=== PATIENT | female | born 1995 | race Caucasian/White ===

== ENCOUNTER 2024-10-01 13:57 | Emergency (ER) | payer SELFPAY ==
--- NOTE | 2024-10-01 14:00 | ED.GENMED ---
ED Provider Triage
<JUSTIN Menjivar - Last Filed: 10/01/24 14:03>
-
Patient seen by provider in Triage?: Seen in Triage
Attestation: A medical screening examination has been initiated by a qualified medical provider. Based on the assessment performed at this time, it has been determined that an emergent medical condition may exist and the patient has been informed
that further medical evaluation and possible additional diagnostic testing may be needed.
HPI: Patient is a 29 year female started vomiting since Saturday and yesterday noticed blood in emesis( dark ). Unable to keep oral fluids down. + liquid diarrhea c/o of upper abd burning
Patient has a history of hyperemesis cannabinoid.
LMP about a week ago.
Last used marijuana Saturday.
GENERAL: Alert , in no apparent distress
EYE: No visual abnormalities.
NECK: Trachea midline
ENT: No visible abnormalities.
LUNGS: No acute respiratory distress
NEUROLOGICAL: Alert and oriented
SKIN: Skin intact. No visible changes.
MUSCULOSKELETAL: Moving extremities normally
PSYCH: Normal and appropriate interaction.
This is a medical evaluation conducted in person to initiate diagnostic evaluation and provide initial therapeutics. Please see further documentation by the treating clinician.
History of Present Illness
<JUSTIN Menjivar - Last Filed: 10/01/24 14:03>
General
Chief Complaint: Abdominal Symptoms
Time Seen by Provider: 10/01/24 16:28
<Stephan Umanzor Jr., PA-C - Last Filed: 10/01/24 19:50>
General
Source: patient
Exam Limitations: none
Nursing documentation reviewed up to this point in time: agreed with
History of Present Illness
History of Present Illness:
29-year-old female past medical history of cannabinoid hyperemesis syndrome presenting to the emergency department today with concerns of vomiting over the past 2 days. Has had trouble tolerating anything by mouth. Also has had some loose stool.
Denies any chest pain shortness of breath seem to improve at home with hot showers.
Past History
<JUSTIN Menjivar - Last Filed: 10/01/24 14:03>
Past History
ED Past Medical History: Psychiatric (Anxiety, Bipolar, Depression) and Other (Cyclical vomiting)
ED Past Surgical History: None
Social History
Tobacco: Non-smoker
Alcohol: None
Drug: Marijuana
Personal: Single
Living: with family
Employment: Not employed
Family History
Family History: Other (Noncontributory)
Review of Systems
<Stephan Umanzor Jr., PA-C - Last Filed: 10/01/24 19:50>
Review of Systems
Allergies reviewed?: Yes
All Other Systems: ROS reviewed and negative except as documented in HPI and ROS
Phy Exam
<Stephan Umanzor Jr., PA-C - Last Filed: 10/01/24 19:50>
Physical Exam
Physical Exam:
GENERAL: Alert , in no apparent distress
EYE: pupils equal and reactive
NECK: Supple, no significant adenopathy.
ENT: o/p clr, mmm.
CARDIAC: Regular rate and rhythm .
LUNGS: Clear breath sounds bilaterally, no acute respiratory distress, no wheezes/rales/rhonchi
ABDOMEN: Soft, without focal tenderness, no r/g, no cvat
NEUROLOGICAL: Alert and oriented, no focal neuro deficits
SKIN: Warm and dry, skin intact.
MUSCULOSKELETAL: No edema, well perfused.
PSYCH: Normal and appropriate interaction.
Course
<JUSTIN Menjivar - Last Filed: 10/01/24 14:03>
Orders/Labs/Results
Orders:
Orders
10/01/24 14:03
Test Result ONCE
10/01/24 14:08
Complete Blood Count/With Diff Urgent
Comprehensive Metabolic Panel Urgent
HCG, Serum Qualitative Screen Urgent
Lipase Urgent
10/01/24 16:46
Famotidine [Pepcid] 20 mg IV NOW STA
Haloperidol Lactate [Haldol] 2 mg IV NOW STA
10/01/24 16:47
0.9% Sodium Chloride 1000 ml [Nss] 1,000 ml IV BOLUS
10/01/24 17:28
Electrocardiogram (*1) Urgent
Reason for Study: QTc Monitoring
EKG- Treatment ONCE
10/01/24 18:07
Diphenhydramine [Benadryl] 25 mg IV NOW STA
Abnormal Lab Results
10/01/24
14:08
WBC 14.8 H 10^3/uL
(4.8-10.8)
RBC 6.34 H 10^6/uL
(4.20-5.40)
Hgb 17.6 H g/dL
(12.0-16.0)
Hct 51.4 H %
(37.0-47.0)
Plt Count 515 H 10^3/uL
(130-400)
MPV 11.2 H fL
(7.4-10.4)
Absolute Neuts (auto) 12.0 H 10^3/uL
(1.4-6.5)
Neutrophils % 81.0 H %
(42.2-75.2)
Lymphocytes % 13.6 L %
(20.5-51.1)
Carbon Dioxide 18 L mmol/L
(22-30)
Glucose 125 H mg/dl
(70-99)
Calcium 10.4 H mg/dl
(8.4-10.2)
Total Protein 8.6 H g/dl
(6.3-8.2)
Albumin 5.5 H g/dl
(3.5-5.0)
10/01/24 14:08
10/01/24 14:08
Vital Signs
Initial and Last Documented VS:
Initial Vital Signs
Temp Pulse Resp BP Pulse Ox
99.0 F 110 16 146/98 99
10/01/24 15:38 10/01/24 15:38 10/01/24 15:38 10/01/24 15:38 10/01/24 15:38
Last Documented Vital Signs
Temp Pulse Resp BP Pulse Ox
99.0 F 110 16 146/98 99
10/01/24 15:38 10/01/24 15:38 10/01/24 15:38 10/01/24 15:38 10/01/24 15:38
<Stephan Umanzor Jr., PA-C - Last Filed: 10/01/24 19:50>
Orders/Labs/Results
Orders:
Orders
10/01/24 14:03
Test Result ONCE
10/01/24 14:08
Complete Blood Count/With Diff Urgent
Comprehensive Metabolic Panel Urgent
HCG, Serum Qualitative Screen Urgent
Lipase Urgent
10/01/24 16:46
Famotidine [Pepcid] 20 mg IV NOW STA
Haloperidol Lactate [Haldol] 2 mg IV NOW STA
10/01/24 16:47
0.9% Sodium Chloride 1000 ml [Nss] 1,000 ml IV BOLUS
10/01/24 17:28
Electrocardiogram (*1) Urgent
Reason for Study: QTc Monitoring
EKG- Treatment ONCE
10/01/24 18:07
Diphenhydramine [Benadryl] 25 mg IV NOW STA
Abnormal Lab Results
10/01/24
14:08
WBC 14.8 H 10^3/uL
(4.8-10.8)
RBC 6.34 H 10^6/uL
(4.20-5.40)
Hgb 17.6 H g/dL
(12.0-16.0)
Hct 51.4 H %
(37.0-47.0)
Plt Count 515 H 10^3/uL
(130-400)
MPV 11.2 H fL
(7.4-10.4)
Absolute Neuts (auto) 12.0 H 10^3/uL
(1.4-6.5)
Neutrophils % 81.0 H %
(42.2-75.2)
Lymphocytes % 13.6 L %
(20.5-51.1)
Carbon Dioxide 18 L mmol/L
(22-30)
Glucose 125 H mg/dl
(70-99)
Calcium 10.4 H mg/dl
(8.4-10.2)
Total Protein 8.6 H g/dl
(6.3-8.2)
Albumin 5.5 H g/dl
(3.5-5.0)
10/01/24 14:08
10/01/24 14:08
Vital Signs
Initial and Last Documented VS:
Initial Vital Signs
Temp Pulse Resp BP Pulse Ox
99.0 F 110 16 146/98 99
10/01/24 15:38 10/01/24 15:38 10/01/24 15:38 10/01/24 15:38 10/01/24 15:38
Last Documented Vital Signs
Temp Pulse Resp BP Pulse Ox
99.0 F 110 16 146/98 99
10/01/24 15:38 10/01/24 15:38 10/01/24 15:38 10/01/24 15:38 10/01/24 15:38
<Stephan Umanzor Jr., YVESC - Last Filed: 10/01/24 19:50>
MDM/Problems Addressed
MDM/Problems Addressed:
29-year-old female presenting to the emergency department today with concerns of nausea vomiting small mount of diarrhea over the past 2 days. Upon arrival mildly tachycardic white count of 14.8 labs without significant acute abnormalities other
than slightly low bicarb. Symptoms seem to improve with hot showers. Seems to be most consistent with likely cannabinoid hyperemesis. Was given a dose of IV nausea medication. Patient reassessed after treatment had some mild side effect of
agitation. She was given Benadryl with complete resolution of symptoms. Heart rate improved here no ongoing vomiting stable for outpatient follow-up return precautions given. She was advised to discontinue marijuana use.
<Stephan Umanzor Jr., PA-C - Last Filed: 10/01/24 19:50>
*Critical Care Note
Total Time (30-74mins, 75-104mins- exclusive of procedures): Not Applicable
ED Attending Note
<JUSTIN Menjivar - Last Filed: 10/01/24 14:03>
-
Portions of this chart may have been created with voice recognition software.� Occasional wrong word or��sound alike� substitutions may have occurred due to the inherent limitations of voice recognition software.
Discharge Plan
Departure
Patient Disposition: Home (Routine Discharge)
Date of Disposition: 10/01/24
Time of Disposition: 19:31
Patient with high blood pressure during this ER visit?: No
Condition: Good
Discharge Problem:
Vomiting
Instructions: Nausea and Vomiting, Adult (DC)
Prescriptions:
No Action
ondansetron 4 mg tablet,disintegrating
4 mg PO QID PRN (Reason: nausea and vomiting) Qty: 20 0RF
prochlorperazine maleate [Compazine] 10 mg tablet
10 mg PO TID PRN (Reason: nausea and vomiting) Qty: 20 0RF
Rx Instructions:
Take with Diphenahydramine (Benadryl) 25mg
promethazine 25 mg suppository
25 mg GA Q6H PRN (Reason: nausea and vomiting) Qty: 12 0RF
Referrals:
UNKNOWN - PT DOES,NOT KNOW [Family Provider] -
Activity Restrictions/Additional Instructions:
You came to the emergency department today with concerns of nausea vomiting. Here you had a reassuring assessment. This could be related to cannabinoid use or this could be a stomach bug. Please follow closely with your primary care doctor and
discontinue any marijuana use. Return to the emergency department for any worsening, new or concerning symptoms.
Interventions
Interventions:
*Risk Screen - Suicide Last Done: 10/01/24 14:00
*General Assessment Last Done: 10/01/24 14:00
*Neglect/Abuse Screening Last Done: 10/01/24 14:00
*ED COVID-19 Vaccine History Last Done: 10/01/24 14:00
DP-Gtryuy-Cotiudabsz Assessment Last Done: 10/01/24 16:37
Discharge Date and Time
Print Language: BAHRAINI
[2024-10-01 14:22] LABS: % Basophils 0.9 % (0-2); % Eosinophils 0.3 % (0-6); % Immature Granulocytes 0.3 % (0-0.5); % Lymphocytes 13.6 % (20.5-51.1); % Monocytes 3.9 % (1.7-9.3); Absolute Basophils 0.1 10^3/uL (0-0.2); Absolute Monocytes 0.6 10^3/uL (0.1-0.6); Hematocrit 51.4 % (37.0-47.0); Hemoglobin 17.6 g/dL (12.0-16.0); Mean Corp Hgb Conc. 34.2 g/dL (33.0-37.0); Mean Corpuscular Hgb 27.8 pg (27.0-31.0); Mean Corpuscular Volume 81.1 fL (81.0-99.0); Mean Platelet Volume 11.2 fL (7.4-10.4); Nucleated Red Blood Cells % 0 %; Platelet Count 515 10^3/uL (130-400); Red Blood Cell Count 6.34 10^6/uL (4.20-5.40); Red Cell Dist. Width 13.2 % (11.5-14.5); White Blood Cell Count 14.8 10^3/uL (4.8-10.8)
[2024-10-01 14:38] LABS: ALT (SGPT) 18 U/L (0-35); AST (SGOT) 20 U/L (14-36); Albumin 5.5 g/dl (3.5-5.0); Alkaline Phosphatase 114 U/L (38-126); Blood Urea Nitrogen 15 mg/dl (7-17); Calcium 10.4 mg/dl (8.4-10.2); Carbon Dioxide 18 mmol/L (22-30); Chloride 100 mmol/L (98-107); Glucose 125 mg/dl (70-99); HCG, Serum Qualitative Screen Negative; Lipase 78 U/L (23-300); Potassium 4.8 mmol/L (3.5-5.1); Sodium 137 mmol/L (135-145); Total Bilirubin 1.1 mg/dl (0.2-1.3); Total Protein 8.6 g/dl (6.3-8.2); eGFR > 60.00
[2024-10-01 15:38] VITALS: BP 146/98
[2024-10-01 16:37] VITALS: BMI 37.8
[2024-10-01] MEDS: NSS 1000 IV (17:22)
[2024-10-01] MEDS: PEPCID 20 MG IV (17:23)
[2024-10-01] MEDS: HALDOL 2 MG IV (17:23)
[2024-10-01] MEDS: BENADRYL 25 MG IV (18:17)
[2024-10-01 19:52] VITALS: BP 140/89
== END 2024-10-01 19:53 | disposition home or self-care (01) ==
LOC: EMR 13:57
PROVIDERS: Nurse Practitioner; EMERGENCY PHYSICIAN Emergency Medicine
DX: R11.2 Nausea with vomiting, unspecified (principal); F12.90 Cannabis use, unspecified, uncomplicated; R19.7 Diarrhea, unspecified
CPT/HCPCS: 96374; 96375; 96361; 99284; 80053; 83690; 84703; 85025; 93005